=== PATIENT | female | born 1955 | race American Indian/Alaskan Native ===

== ENCOUNTER 2017-09-24 17:43 | Emergency (ER) | payer BC ==
[2017-09-24 18:00] VITALS: TEMP 97.7
--- NOTE | 2017-09-24 18:15 | ED PDOC ---
Arrival/HPI - General Chief Complaint: Cough, Cold, Congestion Time Seen by Provider: 09/24/17 17:58 Historian: Patient - History of Present Illness Narrative History of Present Illness (Text): 09/24/17 18:13 pt p/w ~ 3 days onset of severe body malaise, + chills, tactile fever (2 days ago), + mild sore throat, + sick contact, + dry coughing, + congestion; no sweats, no cp/palpitations, no abd pain, no n/v, no numbness/tingling, no urinary/bowel changes, no LOC, + decr appetite, no rashes; pt states mild headache; pt denied other complaints; pt is here for further eval Time/Duration: < week Symptom Onset: Gradual Symptom Course: Unchanged Quality: Aching, Cramping Severity Level: 5 Activities at Onset: Rest Context: Home Past Medical History - Provider Review Nursing Documentation Reviewed: Yes - Travel History Have you recently traveled outside [place] w/in the past 3 mons?: No - Past History Past History: No Previous - Infectious Disease Hx of Infectious Diseases: None - Cardiac Hx Cardiac Disorders: Yes Hx Hypertension: Yes - Pulmonary Hx Respiratory Disorders: No - Neurological Hx Neurological Disorder: No - HEENT Hx HEENT Disorder: No - Renal Hx Renal Disorder: No - Endocrine/Metabolic Hx Endocrine Disorders: Yes Hx Hypothyroidism: Yes - Hematological/Oncological Hx Blood Disorders: No - Integumentary Hx Dermatological Disorder: No - Musculoskeletal/Rheumatological Hx Musculoskeletal Disorders: No - Gastrointestinal Hx Gastrointestinal Disorders: No - Genitourinary/Gynecological Hx Genitourinary Disorders: No - Psychiatric Hx Psychophysiologic Disorder: No Hx Substance Use: No - Surgical History Hx Thyroidectomy: Yes - Anesthesia Hx Anesthesia: No Family/Social History - Physician Review Nursing Documentation Reviewed: Yes Family/Social History: No Known Family HX Smoking Status: Never Smoked Hx Alcohol Use: Yes Frequency of alcohol use: Socially Hx Substance Use: No Hx Substance Use Treatment: No Allergies/Home Meds Allergies/Adverse Reactions: Allergies No Known Allergies Allergy (Verified 09/24/17 17:54) Home Medications: Home Meds Medication Instructions Recorded Confirmed Multivit,Iron,Min 5/Folic Acid 1 tab PO DAILY 01/22/16 09/24/17 [Strovite Forte] Review of Systems - Review of Systems Constitutional: Fatigue, Fevers. absent: Weight Change Eyes: Normal ENT: Sore Throat, Rhinorrhea, Sinus Congestion Respiratory: Cough. absent: Wheezing Cardiovascular: Normal Gastrointestinal: Normal Genitourinary Female: Normal Musculoskeletal: Back Pain, Myalgias Skin: Normal Neurological: Normal Endocrine: Normal Hemo/Lymphatic: Normal Psychiatric: Normal Physical Exam Vital Signs Reviewed: Yes Vital Signs Temp Pulse Resp BP Pulse Ox 09/24/17 17:54 97.7 F 91 H 18 149/93 H 100 Temperature: Afebrile Blood Pressure: Hypertensive Pulse: Regular Respiratory Rate: Normal Appearance: Positive for: Well-Appearing, Other (resting in bed, uncomfortable, no distress noted, cooperative, alert/awake, GCS = 15, oriented x 3) Pain Distress: None Mental Status: Positive for: Alert and Oriented X 3 - Systems Exam Head: Present: Atraumatic, Normocephalic Pupils: Present: PERRL Extroacular Muscles: Present: EOMI Conjunctiva: Present: Normal Ears: Present: Normal Mouth: Present: Moist Mucous Membranes, Normal Teeth, Other (no drooling/stridor , no exudate/lesions) Pharnyx: Present: Normal Nose (External): Present: Atraumatic Nose (Internal): Present: Normal Inspection Neck: Present: Normal Range of Motion, Trachea Midline, Other (no nuchal rigidity, no meningeal signs, no midline tenderness). No: MIDLINE TENDERNESS Respiratory/Chest: Present: Clear to Auscultation, Good Air Exchange. No: Respiratory Distress, Wheezes, Tachypneic Cardiovascular: Present: Regular Rate and Rhythm, Normal S1, S2 Abdomen: Present: Normal Bowel Sounds, Other (well nourished female, no focal tenderness, no masses/rebound/guarding/rigidity, no chavez's sign, no mcburney' s point tenderness) Back: Present: Normal Inspection. No: CVA Tenderness, Midline Tenderness Upper Extremity: Present: Normal Inspection, Normal ROM, NORMAL PULSES, Neurovascularly Intact Lower Extremity: Present: Normal Inspection, NORMAL PULSES, Normal ROM, Neurovascularly Intact, Capillary Refill < 2 s Neurological: Present: GCS=15, CN II-XII Intact, Speech Normal Skin: Present: Warm, Normal Color Psychiatric: Present: Alert, Oriented x 3, Normal Insight Medical Decision Making ED Course and Treatment: 09/24/17 19:04 Impression: cough, sob, congestion i have consider all the differential diagnosis regarding pt's chief medical complaints/clinical findings, including but are not limited to: viral syndrome, likely flu A/P: r/o flu, likely viral syndrome - observe - supportive care Re-evaluation Time: 19:06 Reassessment Condition: Improving,but remains with symptoms - Lab Interpretations I have reviewed the lab results: Yes - Medication Orders Current Medication Orders: Discontinued Medications Ibuprofen (Motrin Tab) 400 mg PO STAT STA Stop: 09/24/17 18:13 Last Admin: 09/24/17 18:51 Dose: 400 mg MAR Pain/Vitals Document 09/24/17 18:51 [email or web address] (Rec: 09/24/17 18:51 [email or web address] [facility] [place]- [id number]) Pain Reassessment Is This A Pain ReAssessment? No Sleep Is patient sleeping during reassessment? No Presence of Pain Presence of Pain Yes Pain Scale Used Pain Scale Used Numeric Location Pain Location Body Site Generalized Description Constant Intensity 4 Scale Used Numeric Pain Behavior Facial Grimacing Aggravating Factors Changing Position Alleviating Factors Medication Oseltamivir Phosphate (Tamiflu Cap) 75 mg PO ONCE ONE PRN Reason: Protocol Stop: 09/24/17 18:47 Last Admin: 09/24/17 18:51 Dose: 75 mg Disposition/Present on Arrival - Present on Arrival Any Indicators Present on Arrival: No History of DVT/PE: No History of Uncontrolled Diabetes: No Urinary Catheter: No History of Decub. Ulcer: No History Surgical Site Infection Following: None - Disposition Have Diagnosis and Disposition been Completed?: Yes Diagnosis: Viral syndrome, Influenza Disposition: HOME/ ROUTINE Disposition Time: 18:52 Patient Plan: Discharge Condition: STABLE Discharge Instructions (ExitCare): Dehydration (ED), Viral Syndrome (ED) Print Language: LITHUANIAN Additional Instructions: Make sure to see your doctor in 1-2 days DRINK PLENTY OF FLUIDS take your medications as prescribed RETURN TO ED IF worse pain, cant breath, persistent vomiting, high fever >101- 102 for hours, altered behavior, unable to urinate, heavy/persistent bleeding, passing out, chest pain, or other medical emergencies Prescriptions: Ibuprofen [Motrin] 400 mg PO QID #30 tab Oseltamivir Phosphate [Tamiflu] 75 mg PO BID #9 capsule Forms: V[employer] (Portuguese), WORK NOTE
[2017-09-24 19:02] VITALS: BP 145/81; PULSE 89; RESP 17; O2SAT 98
== END 2017-09-24 19:02 | disposition home or self-care (01) ==
LOC: ED 17:43
DX: J11.1 Influenza due to unidentified influenza virus with other respiratory manifestations (principal); B34.9 Viral infection, unspecified

== ENCOUNTER 2017-11-16 19:11 | Emergency (ER) | payer BC ==
[2017-11-16 22:21] LABS: BASO # 0.01 K/mm3 (0.0-2.0); BASO % 0.2 % (0.0-3.0); EOS # 0.1 (0.0-0.7); EOS % 2.1 % (1.5-5.0); GRAN # 2.3 (1.4-6.5); GRAN % 44.5 % (50.0-68.0); HEMOGLOBIN 13.2 g/dL (12.0-16.0); LYMPH # 2.5 (1.2-3.4); LYMPH % 47.4 % (22.0-35.0); MEAN CELL VOLUME 82.1 fl (80.0-105.0); MEAN CORPUSCULAR HEMOGLOBIN 27.1 pg (25.0-35.0); MEAN PLATELET VOLUME 10.5 fl (7.0-11.0); MONO # 0.3 (0.1-0.6); MONO % 5.8 % (1.0-6.0); RBC 4.87 10^6/uL (3.5-6.1); RED CELL DISTRIBUTION WIDTH 13.3 % (11.5-14.5); WHITE BLOOD COUNT 5.2 10^3/ul (4.5-11.0)
--- NOTE | 2017-11-16 22:24 | ED PDOC ---
Arrival/HPI - General Historian: Patient - History of Present Illness Time/Duration: < week Symptom Onset: Gradual Symptom Course: Worsening Activities at Onset: Rest Context: Sitting <Thom Hatch - Last Filed: 11/16/17 22:26> <Benedict Stone - Last Filed: 11/16/17 23:13> - General Chief Complaint: ENT Problem Time Seen by Provider: 11/16/17 20:46 - History of Present Illness Narrative History of Present Illness (Text): 11/16/17 22:22 patient is a 62F with no past medical history who comes to the ED with a CC of swelling of the R. neck. The patient states that on Thursday she noticed swelling in the R. submandibular region. 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 The swelling became worse on Thursday. It became tender but was not associated with any difficulty swallowing. She is also complaining of a burning sensation on the right side of her chest wall. Denies any SOB, diaphoresis, fever, chills, nausea, vomiting, diarrhea, constipation. (Thom Hatch) Past Medical History - Past History Past History: No Previous - Infectious Disease Hx of Infectious Diseases: None - Reproductive Menopause: No - Cardiac Hx Cardiac Disorders: Yes Hx Hypertension: Yes - Pulmonary Hx Respiratory Disorders: No - Neurological Hx Neurological Disorder: No - HEENT Hx HEENT Disorder: No - Renal Hx Renal Disorder: No - Endocrine/Metabolic Hx Endocrine Disorders: Yes Hx Hypothyroidism: Yes - Hematological/Oncological Hx Blood Disorders: No - Integumentary Hx Dermatological Disorder: No - Musculoskeletal/Rheumatological Hx Musculoskeletal Disorders: No - Gastrointestinal Hx Gastrointestinal Disorders: No - Genitourinary/Gynecological Hx Genitourinary Disorders: No - Psychiatric Hx Psychophysiologic Disorder: No Hx Substance Use: No - Surgical History Hx Thyroidectomy: Yes - Anesthesia Hx Anesthesia: No Hx Anesthesia Reactions: No Hx Malignant Hyperthermia: No <Thom Hacth - Last Filed: 11/16/17 22:26> Family/Social History Family/Social History: Unknown Family HX Smoking Status: Never Smoked Hx Alcohol Use: Yes Hx Substance Use: No Hx Substance Use Treatment: No <Thom Hatch - Last Filed: 11/16/17 22:26> Allergies/Home Meds <Thom Hatch - Last Filed: 11/16/17 22:26> <Benedict Stone - Last Filed: 11/16/17 23:13> Allergies/Adverse Reactions: Allergies No Known Allergies Allergy (Verified 09/24/17 17:54) Home Medications: Home Meds Medication Instructions Recorded Confirmed Multivit,Iron,Min 5/Folic Acid 1 tab PO DAILY 01/22/16 09/24/17 [Strovite Forte] Review of Systems - Review of Systems Constitutional: Normal. absent: Weight Change, Fevers Eyes: Normal ENT: Normal. absent: Hearing Changes, Tinnitus, TMJ Pain, Voice Changes, Sore Throat, Sinus Congestion Respiratory: Normal Cardiovascular: Normal Gastrointestinal: Normal Genitourinary Female: Normal Musculoskeletal: Normal Skin: Normal Neurological: Normal. absent: Headache Endocrine: Normal Hemo/Lymphatic: Normal Psychiatric: Normal <RomerogeeThom arias - Last Filed: 11/16/17 22:26> Physical Exam Temperature: Afebrile Blood Pressure: Normal Pulse: Regular Respiratory Rate: Normal Appearance: Positive for: Well-Appearing, Non-Toxic, Comfortable Pain Distress: None Mental Status: Positive for: Alert and Oriented X 3 - Systems Exam Head: Present: Atraumatic, Normocephalic Pupils: Present: PERRL Extroacular Muscles: Present: EOMI Conjunctiva: Present: Normal Ears: Present: NORMAL TM, Normal Canal. No: Erythema, TM Bulging, Fluid, TM Perf Mouth: Present: Moist Mucous Membranes, Normal Lips, Normal Tounge, Normal Teeth Pharnyx: Present: Normal. No: ERYTHEMA, EXUDATE, TONSILS ENLARGED, Peritonsilar Swelling, Uvular Deviation, Muffled/Hoarse Voice, Strider, Soft Palate/Uvular Edema Neck: Present: Lymphadenopathy (R. side swollen solid LN, well circumscribed mobile) Respiratory/Chest: Present: Clear to Auscultation, Good Air Exchange. No: Respiratory Distress, Accessory Muscle Use Cardiovascular: Present: Regular Rate and Rhythm. No: Tachycardic Abdomen: Present: Normal Bowel Sounds. No: Tenderness, Distention, Peritoneal Signs Upper Extremity: Present: Normal Inspection Lower Extremity: Present: Normal Inspection Neurological: Present: GCS=15, CN II-XII Intact, Speech Normal Skin: Present: Warm, Dry, Normal Color. No: Rashes Psychiatric: Present: Alert, Oriented x 3, Normal Insight, Normal Concentration <Thom Hatch - Last Filed: 11/16/17 22:26> Vital Signs Temp Pulse Resp BP Pulse Ox 11/16/17 19:12 97.9 F 70 18 181/99 H 100 Medical Decision Making <RomerogeehugoThom - Last Filed: 11/16/17 22:26> <Benedict Stone - Last Filed: 11/16/17 23:13> ED Course and Treatment: 11/16/17 22:32 62F with R. Submandibular LN A: Mass VS Sialadenitis P: CT neck IV contrast (Thom Hatch) 11/16/17 23:10 62 yo female with R. Submandibular LN vs Mass vs Stone. Agree with resident note. Secondary complaint, right sided chest wall burning sensation. Chest: Lungs clear no w/r/r; no rash Neck: right submandibular mass, tender, hard Throat: uvular midline; no exudates EKG: NSR at 68 bpm with LVH, no ST elevations; no change from 01/22/16 Case signed out to Dr. Monzon to f/u labs, CT, reevaluate and disposition. ( Benedict Stone) - Lab Interpretations Lab Results: 11/16/17 22:09 11/16/17 22:09 Lab Results 11/16/17 22:09: Sodium 143, Potassium 3.9, Chloride 107, Carbon Dioxide 24, Anion Gap 16, BUN 17, Creatinine 0.8, Est GFR ( Amer) > 60, Est GFR (Non- Af Amer) > 60, Random Glucose 99, Calcium 9.8, Magnesium 2.2, Total Bilirubin 0.5, AST 33, ALT 34, Alkaline Phosphatase 79, Total Protein 8.2, Albumin 4.4, Globulin 3.8, Albumin/Globulin Ratio 1.2 11/16/17 22:09: WBC 5.2, RBC 4.87, Hgb 13.2, Hct 40.0, MCV 82.1, MCH 27.1, MCHC 33.0, RDW 13.3, Plt Count 161, MPV 10.5, Gran % 44.5 L, Lymph % (Auto) 47.4 H, [place] % (Auto) 5.8, Eos % (Auto) 2.1, Baso % (Auto) 0.2, Gran # 2.30, Lymph # ( Auto) 2.5, [place] # (Auto) 0.3, Eos # (Auto) 0.1, Baso # (Auto) 0.01 - RAD Interpretation Radiology Orders: 11/16/17 21:22 NECK SOFT TISSUE W/CONTRAST [CT] Stat CHEST PORTABLE [RAD] Stat - Medication Orders Current Medication Orders: Discontinued Medications Ketorolac Tromethamine (Toradol) 15 mg IVP STAT STA Stop: 11/16/17 21:26 Disposition/Present on Arrival - Present on Arrival History of DVT/PE: No History of Uncontrolled Diabetes: No Urinary Catheter: No History of Decub. Ulcer: No History Surgical Site Infection Following: None <Thom Hatch - Last Filed: 11/16/17 22:26> - Present on Arrival Any Indicators Present on Arrival: No - Disposition Have Diagnosis and Disposition been Completed?: No Disposition Time: 23:13 <Benedict Stone - Last Filed: 11/16/17 23:13> - Disposition Diagnosis: Mass of submandibular region Condition: FAIR Referrals: Tonny Gonzalez MD [Primary Care Provider] - Follow up with primary Forms: [place] (Kyrgyz)
[2017-11-16 22:26] LABS: ALB/GLOB RATIO 1.2 (1.1-1.8); ALBUMIN 4.4 g/dL (3.0-4.8); ALT/SGPT 34 U/L (7-56); AST/SGOT 33 U/L (14-36); BLOOD UREA NITROGEN 17 mg/dL (7-21); CALCIUM 9.8 mg/dL (8.4-10.5); GFR AFRICAN-AMERICAN > 60; GFR NON-AFRICAN AMERICAN > 60
[2017-11-16] MEDS ORDERED: Iohexol 350 MG/100 ML VIAL ONE (23:17)
--- NOTE | 2017-11-16 23:30 | ED PDOC ---
Physical Exam Vital Signs Reviewed: Yes Vital Signs Temp Pulse Resp BP Pulse Ox 11/16/17 19:12 97.9 F 70 18 181/99 H 100 Temperature: Afebrile Blood Pressure: Hypertensive Pulse: Regular Respiratory Rate: Normal Appearance: Positive for: Well-Appearing, Non-Toxic, Comfortable Pain Distress: None Mental Status: Positive for: Alert and Oriented X 3 Medical Decision Making ED Course and Treatment: 11/16/17 23:30 Case signed out to me by Dr. Stone. Pending labs, CT neck soft tissue, reevaluation and disposition. 11/17/17 02:06 CT Neck With Intravenous Contrast FINDINGS: Brain: No acute abnormalities are seen in visualized portion of the brain. Sinuses: There is no acute sinusitis. Ears and mastoids: Middle ears and mastoids are unremarkable Orbits: Orbital contents are unremarkable. Tonsils and adenoids: Tonsils and adenoids are unremarkable. Deep facial spaces: Parapharyngeal spaces are symmetric. Retropharyngeal soft tissues are unremarkable. Salivary glands: Parotid and left submandibular glands are unremarkable. There is enlargement and increased enhancement of the right submandibular gland. There are multiple stones in the submandibular gland. No stones are seen in the course of the right [place]'s duct. Airway: Airway is unremarkable Thyroid: Thyroid appears mildly enlarged. Gland is heterogeneous with small nodules. Vascular: Vascular structures are unremarkable. Nodes: There is tiny cervical adenopathy. There are mildly enlarged left submandibular nodes. Lung apices: Lung apices are clear. Bony structures: There are degenerative changes in the visualized spine. IMPRESSION: Right submandibular sialadenitis with multiple submandibular gland stones, no stones identified in the course of the right [place]'s duct. Dictated and Authenticated by: Tana Vaughan MD 11/17/2017 1:58 AM Eastern Time ([place] & [place]) - Lab Interpretations Lab Results: 11/16/17 22:09 11/16/17 22:09 Lab Results 11/16/17 22:09: Sodium 143, Potassium 3.9, Chloride 107, Carbon Dioxide 24, Anion Gap 16, BUN 17, Creatinine 0.8, Est GFR ( Amer) > 60, Est GFR (Non- Af Amer) > 60, Random Glucose 99, Calcium 9.8, Magnesium 2.2, Total Bilirubin 0.5, AST 33, ALT 34, Alkaline Phosphatase 79, Total Protein 8.2, Albumin 4.4, Globulin 3.8, Albumin/Globulin Ratio 1.2 11/16/17 22:09: WBC 5.2, RBC 4.87, Hgb 13.2, Hct 40.0, MCV 82.1, MCH 27.1, MCHC 33.0, RDW 13.3, Plt Count 161, MPV 10.5, Gran % 44.5 L, Lymph % (Auto) 47.4 H, [place] % (Auto) 5.8, Eos % (Auto) 2.1, Baso % (Auto) 0.2, Gran # 2.30, Lymph # ( Auto) 2.5, [place] # (Auto) 0.3, Eos # (Auto) 0.1, Baso # (Auto) 0.01 I have reviewed the lab results: Yes - RAD Interpretation Radiology Orders: 11/16/17 21:22 NECK SOFT TISSUE W/CONTRAST [CT] Stat CHEST PORTABLE [RAD] Stat - Medication Orders Current Medication Orders: Discontinued Medications Ketorolac Tromethamine (Toradol) 15 mg IVP STAT STA Stop: 11/16/17 21:26 - PA / PUBLICATION MANAGER / Resident Statement MD/DO has reviewed & agrees with the documentation as recorded. - Scribe Statement The provider has reviewed the documentation as recorded by the Anitha Wallace Provider Scribe Attestation: All medical record entries made by the Scribkendall were at my direction and personally dictated by me. I have reviewed the chart and agree that the record accurately reflects my personal performance of the history, physical exam, medical decision making, and the department course for this patient. I have also personally directed, reviewed, and agree with the discharge instructions and disposition. Disposition/Present on Arrival - Present on Arrival Any Indicators Present on Arrival: No History of DVT/PE: No History of Uncontrolled Diabetes: No Urinary Catheter: No History of Decub. Ulcer: No History Surgical Site Infection Following: None - Disposition Have Diagnosis and Disposition been Completed?: Yes Diagnosis: Mass of submandibular region, Sialadenitis Disposition: HOME/ ROUTINE Disposition Time: 02:10 Patient Plan: Discharge Patient Problems: Current Active Problems Problem Status Onset Mass of submandibular region Acute Sialadenitis Acute Condition: GOOD Discharge Instructions (ExitCare): Salivary Gland Infection (DC) Additional Instructions: Mrs Luther, There are multiple small stones in your submandibular salivary gland. Please follow up with Dr Tobias, ENT, call tomorrow for an appointment. In the meantime avoid sour things. Take Motrin for the pain and swelling. Start the cleocin tomorrow morning. (antibiotic) Return to us if any problems. It was a pleasure to meet you tonight. [place]- Dr. Nj Monzon Referrals: Tonny Gonzalez MD [Primary Care Provider] - Follow up with primary Lele Tobias DO [Staff Provider] - Follow up with primary Forms: [employer] (Monegasque)
--- NOTE | 2017-11-17 01:58 | CT ---
EXAM: CT Neck With Intravenous Contrast EXAM DATE/TIME: 11/16/2017 9:22 PM CLINICAL HISTORY: 62 years old, female; Signs and symptoms; Mass, lump, or swelling in neck; Additional info: R. Sided submandibular neck mass TECHNIQUE: Axial computed tomography images of the neck with intravenous contrast. All CT scans at this facility use one or more dose reduction techniques, viz.: automated exposure control; ma/kV adjustment per patient size (including targeted exams where dose is matched to indication; i.e. head); or iterative reconstruction technique. Coronal and sagittal reformatted images were created and reviewed. CONTRAST: 89 mL of OMNI 350 administered intravenously. COMPARISON: There are no prior studies for comparison. FINDINGS: Brain: No acute abnormalities are seen in visualized portion of the brain. Sinuses: There is no acute sinusitis. Ears and mastoids: Middle ears and mastoids are unremarkable Orbits: Orbital contents are unremarkable. Tonsils and adenoids: Tonsils and adenoids are unremarkable. Deep facial spaces: Parapharyngeal spaces are symmetric. Retropharyngeal soft tissues are unremarkable. Salivary glands: Parotid and left submandibular glands are unremarkable. There is enlargement and increased enhancement of the right submandibular gland. There are multiple stones in the submandibular gland. No stones are seen in the course of the right [place]'s duct. Airway: Airway is unremarkable Thyroid: Thyroid appears mildly enlarged. Gland is heterogeneous with small nodules. Vascular: Vascular structures are unremarkable. Nodes: There is tiny cervical adenopathy. There are mildly enlarged left submandibular nodes. Lung apices: Lung apices are clear. Bony structures: There are degenerative changes in the visualized spine. IMPRESSION: Right submandibular sialadenitis with multiple submandibular gland stones, no stones identified in the course of the right [place]'s duct
[2017-11-17 03:06] VITALS: TEMP 97.8; O2SAT 97
[2017-11-17 03:07] VITALS: BP 170/79; PULSE 70; RESP 18
--- NOTE | 2017-11-17 09:19 | RAD ---
HISTORY: chest pain COMPARISON: No prior. FINDINGS: LUNGS: No active lung disease PLEURA: No significant pleural effusion identified, no pneumothorax apparent. CARDIOVASCULAR: Top-normal heart size OSSEOUS STRUCTURES: Thoracic spondylosis VISUALIZED UPPER ABDOMEN: Normal. OTHER FINDINGS: None. IMPRESSION: No acute pulmonary pathology noted. Top-normal heart size
--- NOTE | 2017-11-18 11:53 | CARD ---
APPROVED REPORT EKG Measurement Heart [id number] <Conclusion> Normal sinus rhythm Possible Left atrial enlargement Left ventricular hypertrophy Abnormal ECG
== END 2017-11-17 02:55 | disposition home or self-care (01) ==
LOC: ED 19:11
DX: K11.20 Sialoadenitis, unspecified (principal); R22.1 Localized swelling, mass and lump, neck; I10 Essential (primary) hypertension; E03.9 Hypothyroidism, unspecified
CPT/HCPCS: 70491; 71045; 80053; 83735; 85025; 93005; 96374; 99285; J1885; Q9967